=== PATIENT | male | born 1965 | race Caucasian/White ===

== ENCOUNTER 2016-06-27 05:45 | Inpatient (IN) | payer OTHER ==
[2016-06-19 11:07] LABS: % IMMATURE GRANULYOCYTES 0.3 % (0.0-1.1); ABSOLUTE IMMATURE GRANULOCYTES 0.02 10^3/uL (0.00-0.10); ADD DIFF? NO; ADD MORPH? NO; ADD SCAN? NO; ATYPICAL LYMPHOCYTE FLAG 0 (0-99); FRAGMENT RBC FLAG 0 (0-99); HEMATOCRIT 47.4 % (40.0-51.0); HEMOGLOBIN 16.9 g/dL (13.7-17.5); LEFT SHIFT FLG 0 (0-99); LIPEMIA HEMOLYSIS FLAG 90 (0-99); MEAN CELL HEMOGLOBIN 34.9 pg (27.9-34.1); MEAN CELL HEMOGLOBIN CONCENTR. 35.7 g/dL (32.4-36.7); MEAN CELL VOLUME 97.9 fL (81.5-99.8); MEAN PLATELET VOLUME 9.2 fL (8.7-11.7); PLATELET CLUMPS FLAG 0 (0-99); PLATELET COUNT 144 10^3/uL (150-400); RED BLOOD CELL COUNT 4.84 10^6/uL (4.40-6.38); RED CELL DISTRIBUTION WIDTH 12.8 % (11.5-15.2)
[2016-06-27] MEDS ORDERED: CHLORHEXIDINE GLUC HIBICLENS 118 ML BTL TP ONE (06:00)
[2016-06-27] MEDS ORDERED: ceFAZolin 2 GM/DEXTROSE 100 ML IV ONE (06:00)
[2016-06-27] MEDS ORDERED: LR 1,000 ML IV ONE (06:22)
[2016-06-27] MEDS ORDERED: LIDOCAINE 1% 5 ML SDV ID PRN (06:22)
[2016-06-27] MEDS ORDERED: LIDOCAINE 1% 2 ML INJ ONE (06:29)
[2016-06-27] MEDS ORDERED: THROMBIN (RECOMBINANT) 20,000 UNIT VIAL TP ONE (06:53)
[2016-06-27] MEDS ORDERED: AVITENE POWDER 1 GM JAR TP ONE (06:54)
[2016-06-27] MEDS ORDERED: BUPIVACAINE/EPI 0.25% 30 ML SDV ONE (06:54)
[2016-06-27] MEDS ORDERED: BUPIVACAINE 0.25% 30 ML SDV ONE (06:54)
[2016-06-27] MEDS ORDERED: BACITRACIN 50,000 UNITS/10 ML SYR IRR ONE (06:55)
[2016-06-27] MEDS ORDERED: BISACODYL 10 MG SUPP PR PRN (06:56)
[2016-06-27] MEDS ORDERED: LACTULOSE 20 GM/30 ML UDCUP PO PRN (06:56)
[2016-06-27] MEDS ORDERED: diphenhydrAMINE 25 MG CAP PO PRN (06:56)
[2016-06-27] MEDS ORDERED: TEMAZEPAM 15 MG CAP PO PRN (06:56)
[2016-06-27] MEDS ORDERED: ACETAMINOPHEN 325 MG TAB PO PRN (06:56)
[2016-06-27] MEDS ORDERED: MAGNESIUM HYDROXIDE 30 ML UDCUP PO PRN (06:56)
[2016-06-27] MEDS ORDERED: oxyCODONE IR 5 MG TAB PO PRN (06:56)
[2016-06-27] MEDS ORDERED: ONDANSETRON 4 MG/2 ML VIAL IVP PRN (06:56)
[2016-06-27] MEDS ORDERED: ALBUTEROL IH PRN (06:56)
[2016-06-27] MEDS ORDERED: CARBOXYMETHYLCELLULOSE 1% 0.4 ML DROPERETTE EACHEYE PRN (06:56)
[2016-06-27] MEDS ORDERED: DIAZEPAM 10 MG/2 ML SYR IVP PRN (06:56)
[2016-06-27] MEDS ORDERED: HYDROmorphONE/DILAUDID 6 MG/30 ML PCA IV PRN (06:56)
[2016-06-27] MEDS ORDERED: ONDANSETRON DISINTEGRATING 4 MG TAB PO PRN (06:56)
[2016-06-27] MEDS ORDERED: NALOXONE HCL 0.4 MG/ML INJ IVP PRN (06:56)
[2016-06-27] MEDS ORDERED: MIDAZOLAM 2 MG/2 ML VIAL ONE (07:16)
[2016-06-27] MEDS ORDERED: LIDOCAINE 2% 5 ML SDV ONE (07:31)
[2016-06-27] MEDS ORDERED: REMIFENTANIL HCL 1 MG VIAL ONE ×3 (07:31→12:05)
[2016-06-27] MEDS ORDERED: fentaNYL 100 MCG/2 ML INJ ONE (07:31)
[2016-06-27] MEDS ORDERED: PROPOFOL/EMULSION 500 MG/50 ML BOTTLE IV ONE ×6 (07:31→12:22)
[2016-06-27] MEDS ORDERED: ROCURONIUM 50 MG/5 ML VIAL ONE (07:36)
[2016-06-27] MEDS ORDERED: DEXAMETHASONE 4 MG/ML VIAL ONE (08:01)
[2016-06-27] MEDS ORDERED: HYDROmorphONE/DILAUDID 2 MG/ML INJ ONE (08:33)
[2016-06-27] MEDS ORDERED: GLYCOPYRROLATE 0.2 MG/1 ML VIAL ONE (08:36)
[2016-06-27] MEDS ORDERED: FAMOTIDINE 20 MG/NACL 50 ML IV SCH (09:00)
[2016-06-27] MEDS ORDERED: ONDANSETRON 4 MG/2 ML VIAL ONE ×2 (09:23→15:00)
[2016-06-27] MEDS ORDERED: ceFAZolin 1 GM VIAL ONE (12:13)
[2016-06-27] MEDS ORDERED: epHEDrine SULFATE 10 MG/ML SYR ONE ×2 (12:14)
[2016-06-27] MEDS ORDERED: PHENYLEPHRINE HCL 100 MCG/ML SYR ONE ×2 (12:17→12:18)
[2016-06-27] MEDS ORDERED: DIAZEPAM 10 MG/2 ML SYR ONE (14:02)
[2016-06-27] MEDS ORDERED: HYDROmorphONE/DILAUDID 1 MG/ML SYR ONE (14:02)
--- NOTE | 2016-06-27 14:16 | SOAPPROG ---
SOAP Progress Note Assessment/Plan: Post Op Visit: S: Awake and alert. Pt with expected neck pain O: AFVSS/PERRLA/EOMI no droop CN 2-12 grossly intact +lt touch INDIRA x 4, 5/5 BUE/BLE = Continued weak to RUE INT/ELF/WE 4/5 CDI Neck soft and supple AUDREY in place and working A/P: 51 yo male that is s/p ACDF C7/T1 with PSF C3-T2 -collar at all times -PT/OT/ST pending -pt seen by Dr Nieto as well -call with any questions or concerns 06/27/16 14:12 Objective: Microbiology 06/27/16 08:35 Gram Stain - Final Back - Eswab 06/27/16 08:30 Mycobacterial Smear (ELAINA) - Final Back - Eswab Mycobacterial Culture - Final Laboratory Results 06/19/16 10:42 ICD10 Worksheet Patient Problems: Problems Problem Status Onset Arthrodesis status Acute Cervical radiculitis Acute Cervical stenosis of spine Acute Right arm weakness Acute Alcohol withdrawal Acute Alcoholism Acute Delirium tremens Acute Thiamine deficiency Acute - ICD10 Problem Qualifiers (1) Cervical stenosis of spine (2) Right arm weakness (3) Arthrodesis status (4) Cervical radiculitis
--- NOTE | 2016-06-27 15:27 | GOP ---
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 PROCEDURE PERFORMED: 1. Anterior cervical diskectomy with arthrodesis, decompression, and placement of a Zero-P device a t C7-T1 and removal of anterior hardware at C7. 2. Posterior cervical arthrodesis C3-4, 4-5, 5-6, 6-7, C7-T1 and T1-T2 with placement of posterior segmental instrumentation C3, C4, C5, C7, T1 and T2. 3. Spinal stereotaxis, same incision bone graft harvest, arthrodesis at C3-4, 4-5, 5-6, 6-7, C7-T1, T1-T2. FINDINGS: ESTIMATED BLOOD LOSS: Procedure #1 was 50 cc; complications none. Procedure #2 was 400 cc; complications none. INDICATIONS: The patient is a 51-year-old gentleman who, unfortunately, has a terrible history of s rl problems and had a successful prior 3 level cervical fusion C4-5, 5-6, 6-7, in the remote past . He had a subsequent herniated a huge disk herniation at C3-4 with cord compression and underwent an adjacent segment ACDF at C3-4 with a Zero-P device and did well from this clinically. He recently developed terrible right cervical radiculopathy. An MRI demonstrated a large focal rig ht paracentral disk protrusion compressing the spinal cord at C7-T1 and the radiographic report note d only mild stenosis at C7-T1, however, there was a focal disk protrusion that was actually crushing the right side of the spinal cord at that level although the central stenosis was unimpressive. Th is fit with his clinical symptoms and he failed conservative management, he desired to have surgery. I suggested an ACDF with a stand-alone device so that we could allow the plate to remain in place and he knew that this device would not be ideal for the cervicothoracic junction particularly undern eath a multilevel fusion and I suggested posterior fixation as well. X-rays demonstrated the possib ility of a pseudoarthrosis at C3-4 and this could be corrected simultaneously although was not part of our original plan, is something that we had noticed and even discussed with the physicians at his insurance company last week. There was some difficulty obtaining insurance approval for the case a pparently because of the radiographic report but the case ultimately was approved after discussing i t with an actual spine surgeon at his insurance company. The risk of esophageal injury, carotid inj ury, recurrent laryngeal nerve injury, hoarseness, dysphagia, hematoma, spinal fluid leak, continued symptoms, nerve injury, possible need for future spine surgery, including adjacent segment to surge ry was discussed. He knew that there was a chance of screw and hardware malposition, major vascular injury, including injury to the vertebral artery and . He knew there was risk of also pseudar throsis. He accepted these risks and wanted to proceed. DESCRIPTION OF PROCEDURE: Patient was taken to the operating room, placed in supine position. Gene ral anesthesia was begun. A midline shoulder roll was placed. Arms were tucked at the sides. The neck was kept in neutral lock but was gently extended. He was sterilely prepped and draped in usual fashion. Baseline neuromonitoring was established and there were some weak responses from the righ t hand but it is monitorable. The right leg was intact. We made a transverse incision just above t he left clavicle. The dissection was straightforward and we dissected medial to the sternocleidomas toid, lateral to the strap muscles, down to the prevertebral space. The prior plate was localized a nd there was a little bit of bone over the prior plate. We mobilized the esophagus and retracted it medially. We dissected the longus colli muscles off the spine and then removed the 2 screws in the C7 portion of the prior cervical plate. We had to use a drill to drill the bone off the plate and then release the screws from their captive bushings, and both these screws were removed. We incised the C7-T1 disk and then drilled a small commuter pilot hole in T1. The exposure was difficult because the zion clarke was diving deep in the chest at this point, but we had good visualization. We placed the distr action pin at T1 and distraction pin in the C7 hole where the prior screws had been placed and distr acted at C7-T1, introduced operating microscope. Under the scope, we incised the C7-T1 disk, remove d the disk and the cartilaginous endplates. We drilled and harvested subchondral bone to create art hrodesis. We harvested this bone for autologous grafting purposes and then we opened the posterior longitudinal ligament and exposed the midline dura. A nice left-sided decompression was obtained an d then, as we worked to the right side, the dura became stuck to a large disk herniation that was pr esent inside the spinal canal. The disk herniation had pierced through the posterior longitudinal l igament and was focally indenting the spinal cord at C7-T1. It was actually rather impressive. We could not separate the disk from the dura so we worked our way laterally over to the C8 nerve root a nd exposed the nerve root and decompressed the nerve root in the neural foramen. We now had normal nerve root sleeve and dura exposed on either side of the intraspinal lesion. We then took a black h ook and began flaking out of the large intention in the dura itself portions of disk material and th ey were quite large. As we did this, the dura relaxed and came up but there was still a fold of dur a present as we entered the nerve root sleeve. We probed this entire area thoroughly and flaked all of this disk material right off the dura and a nice decompression was obtained. We did not unroof the fold of dura that was present at the nerve root entry sleeve as this would obviously cause a CSF leak. We then chose an 8 x 17 x 14 mm stand-alone device. We packed a large amount of autologousl y harvested bone dust and inserted it at C7-T1. We began with a T1 screw in firmly fixed it in plac e. It was flush with the anterior portion of the spine. The C7 screw was more difficult but we had excellent capture of the C7 vertebral body. The clavicle and sternum were preventing more sharp ro stral angulation, but we did have good capture of C7 and I was happy with the device. The screws we re locked in place and this was confirmed with the rep in the room. We achieved meticulous hemostas is. Inspected the area thoroughly. There was no evidence of a problem with the esophagus and there was no evidence of any additional bleeding. We then closed the platysma and skin with interrupted Vicryl sutures. Steri-Strips were applied. The patient was placed in the [place] head frame, put prone onto the Mark table. Care was taken to pad all points of contact. The occiput was gently flexed and the neck extended, particular at the cervicothoracic junction. He was sterilely prepped and draped. I made a midline incision, exposed from the spinous process of C2 to the spinous proces s of T2. We explored the fusion at C3-4 and there was some slight motion between C3 and C4 suggesti ve of pseudoarthrosis. We denuded the posterolateral bone bilaterally to create arthrodesis at C3-4 , C4-5, C5-6, C6-7, T1 and T2. We exposed all the way down to the rostral margin of T2, attached th e Stealth reference frame to the T1 spinous process and used frameless Stealth stereotaxy to place p edicle screws bilaterally at C7, T1 and T2. There was excellent bony purchase of all of these screw s. We then placed lateral mass screws at C3, C4, and C5 and skipped the C6 lateral mass as we trans itioned from lateral mass pedicle screws. An O-arm spin was made and all the screws were in excelle nt position but the right T2 screw had broken into the lateral pedicle and it was in the right costo vertebral joint. While there was good bony purchase, we simply removed the screw and directed it mo re medially. The starting hole was acceptable and there was excellent bony purchase on its more med ial trajectory and we confirmed its location with another spin. Now all the hardware was in excelle nt position and the screws were relatively coincident. We decorticated all the bone at C3-4, 4-5, 5 -6, 6-7, C7-T1 and T2, and did not perform any radical laminectomies. We did harvest the spinous pr ocesses for autologous grafting purposes, and used an extra small BMP and placed this down posterola terally bilaterally. We took rods and bent them and cut them to length, catching each of the latera l mass and pedicle screws from C3-T2. We then final tightened the cap screws down over the rods and this also provided some cervical lordosis as our rods had been pre bent and as we recaptured the tu lips this pulled the head back into a more normal position. We were very happy with all the hardwar e and its placement, and we were also very happy with the alignment at the cervicothoracic junction. All the screws were torqued to company specification. We laid down significant bone autograft and BMP posterolaterally bilaterally from C3-T2, placed a subfascial drain, and then closed the incisio n in multiple layers using Vicryl sutures. A running PDS was placed in the skin itself. The patidominik t was removed from the [place] head frame, put back on the hospital bed, extubated and transferred to recovery room in stable condition. INSTRUMENTATION USED: BIG [employer] 0 PE 8 x 17 x 14 mm stand-alone device with intervertebral anchors, screws at C7 and T1. Posteriorly, we used the vertex select screws and we used an extra small bone morphogenic protein. /[id number]/MODL
[2016-06-27] MEDS: METHOCARBAMOL 750 MG TAB PO PRN ×2 (15:50→17:43)
[2016-06-27] MEDS: HYDROCODONE/APAP 10/325 TAB PO PRN ×2 (15:50→22:00)
[2016-06-27] MEDS: NS W/ 20 KCl/L 1,000 ML IV SCH (15:56)
[2016-06-27] MEDS: SERTRALINE HCL 100 MG TAB PO SCH ×2 (16:24→20:10)
[2016-06-27] MEDS: METOPROLOL TARTRATE 50 MG TAB PO SCH ×2 (16:24→20:10)
[2016-06-27] MEDS: morphINE SR 15 MG TAB PO SCH ×3 (16:24→20:10)
[2016-06-27] MEDS: HYDROmorphONE/DILAUDID 1 MG/ML SYR IVP PRN ×3 (17:45→22:00)
[2016-06-27] MEDS: ALBUTEROL 60 PUFFS/8 GM MDI IH PRN (17:55)
[2016-06-27] MEDS: POLYETHYLENE GLYCOL 3350 17 GM PKT PO PRN (18:05)
[2016-06-27] MEDS: SENNOSIDES/DOCUSATE SODIUM TAB PO SCH ×3 (18:05→20:10)
[2016-06-27] MEDS: DIAZEPAM 5 MG TAB PO PRN (20:10)
[2016-06-27] MEDS: FAMOTIDINE 20 MG TAB PO SCH (20:10)
[2016-06-28] MEDS: HYDROmorphONE/DILAUDID 1 MG/ML SYR IVP PRN ×6 (04:41→16:56)
[2016-06-28] MEDS: HYDROCODONE/APAP 10/325 TAB PO PRN ×3 (04:41→21:57)
[2016-06-28] MEDS: DIAZEPAM 5 MG TAB PO PRN ×2 (04:41→20:46)
[2016-06-28 05:20] LABS: HEMATOCRIT 30.9 % (40.0-51.0); HEMOGLOBIN 10.2 g/dL (13.7-17.5)
[2016-06-28] MEDS: NS W/ 20 KCl/L 1,000 ML IV SCH ×2 (06:16→20:46)
--- NOTE | 2016-06-28 08:37 | NEUSURGPN ---
Assessment/Plan: A: 51 yo male that is s/p ACDF C7/T1 with PSF C3-T2 -Collar at all times -Pain management, on MS Contin 30mg BID, oxycodone. Continue current regimen. -Post op xrays pending -PT/OT/ST pending -Remove AUDREY drain -D/w Dr Nieto -call with any questions or concerns Subjective: Pt resting in bedside chair, c/o posterior neck pain. Objective: AAOx3 NAD VSS MAEx4 Motor 5/5 BUE with exception of left deltoid, triceps 4/5, left handgrip 4+/5 +LT Urinary Catheter in Place: No Catheter Insertion Date: 06/27/16 - Physician Discussed Patient with : [facility] Physical Exam - Vitals, I&O, Labs I and O 06/27/16 06/28/16 06/29/16 05:59 05:59 05:59 Intake Total 3050 950 Output Total 1715 Balance 1335 950 Intake: Oral (ml) 250 IV Intake (ml) 2800 IV Infused (ml) 950 NS W/ 20 KCl/L 1,000 ml @ 900 75 mls/hr IV CONT ANTOINE Rx #:[id number] ceFAZolin 1 GM/DEXTROSE 50 50 ml @ 200 mls/hr IV Q8HRS ANTOINE Rx#:[id number] Output: Urine (ml) 925 Catheter 925 Estimated Blood Loss (ml) 500 Wound Drainage (ml) 290 Anterior Neck Mark 290 Powell Microbiology 06/27/16 08:35 Gram Stain - Final Back - Eswab 06/27/16 08:30 Mycobacterial Smear (ELAINA) - Final Back - Eswab Mycobacterial Culture - Final Vital Signs Temp Pulse Resp BP Pulse Ox 36.6 C 77 16 97/67 L 95 06/28/16 07:31 06/28/16 07:31 06/28/16 07:31 06/28/16 07:31 06/28/16 07:31 Laboratory Results 06/28/16 04:28 ICD10 Worksheet Patient Problems: Problems Problem Status Onset Arthrodesis status Acute Cervical radiculitis Acute Cervical stenosis of spine Acute Right arm weakness Acute Alcohol withdrawal Acute Alcoholism Acute Delirium tremens Acute Thiamine deficiency Acute
[2016-06-28] MEDS: SERTRALINE HCL 100 MG TAB PO SCH ×2 (08:49→20:46)
[2016-06-28] MEDS: FAMOTIDINE 20 MG TAB PO SCH ×2 (08:49→20:46)
[2016-06-28] MEDS: morphINE SR 15 MG TAB PO SCH ×2 (08:50→20:46)
[2016-06-28] MEDS: SENNOSIDES/DOCUSATE SODIUM TAB PO SCH ×2 (08:50→20:46)
[2016-06-28] MEDS: METOPROLOL TARTRATE 50 MG TAB PO SCH ×2 (08:52→20:46)
[2016-06-28 15:28] LABS: GLUCOSE 128 mg/dL (70-100)
[2016-06-29] MEDS: DIAZEPAM 5 MG TAB PO PRN ×2 (04:33→13:58)
[2016-06-29] MEDS: HYDROCODONE/APAP 10/325 TAB PO PRN ×3 (04:33→17:11)
[2016-06-29] MEDS: HYDROmorphONE/DILAUDID 1 MG/ML SYR IVP PRN (05:10)
[2016-06-29] MEDS: morphINE SR 15 MG TAB PO SCH ×2 (08:23→20:42)
[2016-06-29] MEDS: METHOCARBAMOL 750 MG TAB PO PRN ×2 (08:24→17:11)
[2016-06-29] MEDS: FAMOTIDINE 20 MG TAB PO SCH ×2 (08:24→20:42)
[2016-06-29] MEDS: SENNOSIDES/DOCUSATE SODIUM TAB PO SCH ×2 (08:24→20:42)
[2016-06-29] MEDS: METOPROLOL TARTRATE 50 MG TAB PO SCH ×2 (08:24→20:43)
[2016-06-29] MEDS: SERTRALINE HCL 100 MG TAB PO SCH ×2 (08:24→20:42)
--- NOTE | 2016-06-29 08:52 | NEUSURGPN ---
Assessment/Plan: A: 51 yo male that is s/p ACDF C7/T1 with PSF C3-T2 -Collar at all times -Pain management, on MS Contin 30mg BID, oxycodone. Continue current regimen. Continue to alternate muscle relaxants -Post op xrays show stable hardware -PT/OT/ST pending -Dispo, likely tomorrow pending clinical course -D/w Dr Nieto -call with any questions or concerns Subjective: Pt resting in bed, c/o posterior neck pain. Muscle relaxants help Objective: AAOx3 NAD VSS MAEx4 Motor 5/5 LUE, RUE about 4/5 Incisions are cdi +LT Urinary Catheter in Place: No Catheter Insertion Date: 06/27/16 - Physician Discussed Patient with : [facility] Physical Exam - Vitals, I&O, Labs I and O 06/28/16 06/29/16 06/30/16 05:59 05:59 05:59 Intake Total 3050 3130 Output Total 1715 1450 375 Balance 1335 1680 -375 Intake: Oral (ml) 250 1600 IV Intake (ml) 2800 IV Infused (ml) 1530 NS W/ 20 KCl/L 1,000 ml @ 1480 75 mls/hr IV CONT ANTOINE Rx #:[id number] ceFAZolin 1 GM/DEXTROSE 50 50 ml @ 200 mls/hr IV Q8HRS ANTOINE Rx#:[id number] Output: Urine (ml) 925 1250 375 Catheter 925 250 Toilet 300 Urinal 700 375 Estimated Blood Loss (ml) 500 Wound Drainage (ml) 290 200 Anterior Neck Mark 290 200 Blas Other: Output Comment Catheter Straight catheter. PT had not voided Number of Voids Catheter 1 Toilet 1 Bladder Scan Volume (ml) Catheter 58 Microbiology 06/27/16 08:35 Gram Stain - Final Back - Eswab Vital Signs Temp Pulse Resp BP Pulse Ox 36.9 C 82 18 104/71 98 06/29/16 04:00 06/29/16 04:00 06/29/16 04:00 06/29/16 04:00 06/29/16 04:00 Laboratory Results 06/28/16 04:28 06/28/16 15:00 ICD10 Worksheet Patient Problems: Problems Problem Status Onset Arthrodesis status Acute Cervical radiculitis Acute Cervical stenosis of spine Acute Right arm weakness Acute Alcohol withdrawal Acute Alcoholism Acute Delirium tremens Acute Thiamine deficiency Acute
[2016-06-29] MEDS: ALBUTEROL 60 PUFFS/8 GM MDI IH PRN ×2 (10:37→17:54)
[2016-06-30] MEDS: DIAZEPAM 5 MG TAB PO PRN (01:51)
[2016-06-30] MEDS: HYDROCODONE/APAP 10/325 TAB PO PRN ×2 (01:51→09:29)
[2016-06-30] MEDS: METHOCARBAMOL 750 MG TAB PO PRN ×2 (06:48→09:30)
[2016-06-30] MEDS: morphINE SR 15 MG TAB PO SCH ×2 (09:26→20:23)
[2016-06-30] MEDS: ENOXAPARIN 40 MG/0.4 ML SYR SC SCH (09:29)
[2016-06-30] MEDS: SENNOSIDES/DOCUSATE SODIUM TAB PO SCH ×2 (09:29→20:25)
[2016-06-30] MEDS: METOPROLOL TARTRATE 50 MG TAB PO SCH ×2 (09:30→20:25)
[2016-06-30] MEDS: FAMOTIDINE 20 MG TAB PO SCH ×2 (09:30→20:25)
[2016-06-30] MEDS: POLYETHYLENE GLYCOL 3350 17 GM PKT PO PRN (09:30)
[2016-06-30] MEDS: SERTRALINE HCL 100 MG TAB PO SCH ×2 (09:30→20:25)
--- NOTE | 2016-06-30 09:39 | SOAPPROG ---
SOAP Progress Note Assessment/Plan: Assessment: needs one more day of assistance and then home sp C3 to T2 fusion posteriorly ACDF at C7T1 anteriorly. xrays look good. has kyphosis at T2/3 but cervicothoracic junction curvature looks good. Plan: 06/30/16 09:38 Subjective: still with substantial pain. needs assistance with ADLs preop right arm pain has been gone since surgery. Objective: Vital Signs Temp Pulse Resp BP Pulse Ox 36.9 C 47 L 16 119/60 92 06/30/16 07:43 06/30/16 07:43 06/30/16 07:43 06/30/16 07:43 06/30/16 07:43 Microbiology 06/27/16 08:35 Gram Stain - Final Back - Eswab Laboratory Results 06/28/16 04:28 06/28/16 15:00 06/29/16 06/30/16 07/01/16 05:59 05:59 05:59 Intake Total 3130 1050 Output Total 1450 375 Balance 1680 675 MAEW dressings dry. ICD10 Worksheet Patient Problems: Problems Problem Status Onset Arthrodesis status Acute Cervical radiculitis Acute Cervical stenosis of spine Acute Right arm weakness Acute Alcohol withdrawal Acute Alcoholism Acute Delirium tremens Acute Thiamine deficiency Acute
[2016-06-30 23:26] VITALS: RESP 16
[2016-07-01] MEDS: HYDROCODONE/APAP 10/325 TAB PO PRN ×3 (04:38→13:16)
[2016-07-01] MEDS: DIAZEPAM 5 MG TAB PO PRN (04:39)
[2016-07-01 07:53] VITALS: BP 122/73; PULSE 93; TEMP 98.1; O2SAT 90
[2016-07-01] MEDS: ENOXAPARIN 40 MG/0.4 ML SYR SC SCH (08:24)
[2016-07-01] MEDS: FAMOTIDINE 20 MG TAB PO SCH (08:25)
[2016-07-01] MEDS: SENNOSIDES/DOCUSATE SODIUM TAB PO SCH (08:25)
[2016-07-01] MEDS: METOPROLOL TARTRATE 50 MG TAB PO SCH (08:25)
[2016-07-01] MEDS: SERTRALINE HCL 100 MG TAB PO SCH (08:25)
[2016-07-01] MEDS: METHOCARBAMOL 750 MG TAB PO PRN ×2 (08:29→13:17)
[2016-07-01] MEDS: morphINE SR 15 MG TAB PO SCH (08:30)
--- NOTE | 2016-07-01 10:01 | NEUSURGPN ---
Date of Surgery: 06/27/16 Post Op Day: 4 Assessment/Plan: A: 51 yo male that is s/p ACDF C7/T1 with PSF C3-T2 -Collar at all times -Painsignificant but manageable, on MS Contin 30mg BID, oxycodone. Continue current regimen. alternate muscle relaxants robaxin and valium -Post op xrays reviewed by susie -Home today Subjective: muscle tightness and pain between shoulder blades. Objective: AAOx3 NAD VSS MAEx4 Motor 5/5 LUE, RUE 5/5 except triceps and tax staff accountant 4/5 Incisions are cdi +LT Catheter Insertion Date: 06/27/16 - Physician Discussed Patient with : [facility] Physical Exam - Vitals, I&O, Labs I and O 06/30/16 07/01/16 07/02/16 05:59 05:59 05:59 Intake Total 1050 200 Output Total 375 300 Balance 675 -100 Intake: Oral (ml) 1050 200 Output: Urine (ml) 375 300 Toilet 300 Urinal 375 Other: Intake Quantity Yes Yes Sufficient Number of Voids Toilet 1 Microbiology 06/27/16 08:35 Gram Stain - Final Back - Eswab Vital Signs Temp Pulse Resp BP Pulse Ox 36.7 C 93 16 122/73 H 90 L 07/01/16 07:49 07/01/16 07:49 07/01/16 07:49 07/01/16 07:49 07/01/16 07:49 Laboratory Results 06/28/16 04:28 06/28/16 15:00 ICD10 Worksheet Patient Problems: Problems Problem Status Onset Arthrodesis status Acute Cervical radiculitis Acute Cervical stenosis of spine Acute Right arm weakness Acute Alcohol withdrawal Acute Alcoholism Acute Delirium tremens Acute Thiamine deficiency Acute
== END 2016-07-01 14:21 | disposition home or self-care (01) | DRG 454 ==
LOC: F3N 05:45
PROVIDERS: ADMIT Neurological Surgery; ATTEND Neurological Surgery
PROC: 0RG60AJ Fusion of Thoracic Vertebral Joint with Interbody Fusion Device, Posterior Approach, Anterior Column, Open Approach (ICD-10-PCS; principal; 2016-06-27 07:29)
PROC: 0RG20AJ Fusion of 2 or more Cervical Vertebral Joints with Interbody Fusion Device, Posterior Approach, Anterior Column, Open Approach (ICD-10-PCS; principal; 2016-06-27 07:29)
PROC: 0RP10JZ Removal of Synthetic Substitute from Cervical Vertebral Joint, Open Approach (ICD-10-PCS; principal; 2016-06-27 07:29)
PROC: 01N10ZZ Release Cervical Nerve, Open Approach (ICD-10-PCS; principal; 2016-06-27 07:29)
PROC: 0RG4070 Fusion of Cervicothoracic Vertebral Joint with Autologous Tissue Substitute, Anterior Approach, Anterior Column, Open Approach (ICD-10-PCS; principal; 2016-06-27 07:29)
PROC: 00NW0ZZ Release Cervical Spinal Cord, Open Approach (ICD-10-PCS; principal; 2016-06-27 07:29)
PROC: 4A1004G Monitoring of Central Nervous Electrical Activity, Intraoperative, Open Approach (ICD-10-PCS; principal; 2016-06-27 07:29)
PROC: 0RG40AJ Fusion of Cervicothoracic Vertebral Joint with Interbody Fusion Device, Posterior Approach, Anterior Column, Open Approach (ICD-10-PCS; principal; 2016-06-27 07:29)
DX: M48.02 Spinal stenosis, cervical region (principal); M47.12 Other spondylosis with myelopathy, cervical region; I10 Essential (primary) hypertension; F41.8 Other specified anxiety disorders; G89.29 Other chronic pain
CPT/HCPCS: 82947-QW; 92526-GN; 92610-GN; 97116-GP; 97161-GP; 97165-GO; 97530-GO; C1713; J0690; J1100; J1170; J1650; J2250; J2370; J2405; J2704; J3010

== ENCOUNTER → 2016-09-22 | Outpatient (CLI) | payer OTHER | LOC: FIMAGING 16:55 | PROVIDERS: ATTEND Physician Assistant | DX: Z47.89 Encounter for other orthopedic aftercare (principal); Z98.1 Arthrodesis status ==

== ENCOUNTER → 2017-06-26 | Outpatient (CLI) | payer OTHER, MEDICAID | LOC: FIMAGING 17:38 | PROVIDERS: ATTEND Nurse Practitioner | DX: Z09 Encounter for follow-up examination after completed treatment for conditions other than malignant neoplasm (principal); Z98.1 Arthrodesis status ==

== ENCOUNTER 2017-10-07 13:00 | Day surgery (SDC) | payer OTHER, MEDICAID ==
[2017-10-07] MEDS ORDERED: FLUMAZENIL 0.5 MG/5 ML MDV IVP PRN (13:14)
[2017-10-07] MEDS ORDERED: MIDAZOLAM 2 MG/2 ML VIAL IVP PRN (13:14)
[2017-10-07] MEDS ORDERED: NALOXONE HCL 0.4 MG/ML INJ IVP PRN (13:14)
[2017-10-07] MEDS ORDERED: MEPERIDINE 25 MG/ML SYR IVP PRN (13:14)
[2017-10-07] MEDS ORDERED: fentaNYL 100 MCG/2 ML INJ IVP PRN (13:14)
[2017-10-07] MEDS ORDERED: NS 1,000 ML IV SCH (13:15)
--- NOTE | 2017-10-07 14:06 | PDRADPRE ---
Radiology History & Physical Indication for procedure: back pain Home medications: Sertraline HCl [Zoloft 100mg (*)] 100 mg PO BID 01/09/14 [Last Taken 06/25/16] Metoprolol Tartrate [Lopressor 50 mg (*)] 50 mg PO BID 06/07/16 [Last Taken ] Allergies/Adverse Reactions: Sulfa (Sulfonamide Antibiotics) Allergy (Intermediate, Verified 10/04/17 10:20) Rash Mental status: A&Ox3 Heart exam: regular rate and rhythm Mallampati Score: Class 2
[2017-10-07] MEDS ORDERED: LIDOCAINE 1% 300 MG/30 ML SDV ONE (14:41)
[2017-10-07] MEDS ORDERED: TRIAMCINOLONE ACETONIDE 200 MG/5 ML MDV IM ONE (14:42)
[2017-10-07] MEDS ORDERED: IOPAMIDOL (ISOVUE-300) 100 ML BTL ONE (14:42)
[2017-10-07] MEDS ORDERED: IOPAMIDOL (ISOVUE-M 300) 15 ML VIAL ONE (14:44)
[2017-10-07] MEDS ORDERED: fentaNYL 100 MCG/2 ML INJ ONE (15:02)
[2017-10-07] MEDS ORDERED: MIDAZOLAM 2 MG/2 ML VIAL ONE (15:02)
[2017-10-07] MEDS ORDERED: ONDANSETRON 4 MG/2 ML VIAL IVP PRN (15:21)
--- NOTE | 2017-10-07 15:22 | PDRADPN ---
Radiology Procedure Note Date of Procedure: 10/07/17 Radiologist: Vivek Wallace Anesthesia: IV Sedation Pre-op Diagnosis: back pain Post-op Diagnosis: same Indication: back pain Procedure: L2-3 LYSSA Inf/Abcess present in the surg proc area at time of surgery?: No Complications: none immediately
[2017-10-07 16:31] VITALS: BP 145/86
== END 2017-10-07 16:35 | disposition home or self-care (01) ==
LOC: FIMAGING 13:00
PROVIDERS: ATTEND Neurological Surgery
PROC: 3E0S3BZ Introduction of Anesthetic Agent into Epidural Space, Percutaneous Approach (ICD-10-PCS; principal; 2017-10-07 15:32)
DX: M48.061 Spinal stenosis, lumbar region without neurogenic claudication (principal)
CPT/HCPCS: J2250; J2310; J3010; J3301; Q9967

== ENCOUNTER → 2017-10-18 | Outpatient (CLI) | payer OTHER, MEDICAID | LOC: BMCIMAGING 15:17 | PROVIDERS: ATTEND Physician Assistant | DX: M85.80 Other specified disorders of bone density and structure, unspecified site (principal); M54.16 Radiculopathy, lumbar region; R29.890 Loss of height; Z98.1 Arthrodesis status ==

== ENCOUNTER → 2017-10-18 | Outpatient (CLI) | payer OTHER, MEDICAID | LOC: FIMAGING 16:51 | PROVIDERS: ATTEND Physician Assistant | DX: M41.9 Scoliosis, unspecified (principal); M54.16 Radiculopathy, lumbar region; Z98.1 Arthrodesis status ==